=== PATIENT | male | born 1960 | race Caucasian/White ===

== ENCOUNTER 2017-04-16 09:06 | Emergency (ER) | payer OTHER ==
[~2017-04-16] VITALS: Ht 177.8 cm; Wt 92.3 kg
[~2017-04-16 09:06] MED LIST: ASPIR 8181 M1 PO; CO Q-1050 MG PO; COMPLETE M9 MG/15 ML PO; CRESTOR10 MG PO
[2017-04-16 09:43] LABS: HEMATOCRIT 48.9 % (38.0-50.0); MCH 30.8 PG (29.0-34.0); MCV 87.9 FL (86-99); RBC DIS.WIDTH-CV 12.7 % (11.8-14.6); RED BLOOD COUNT 5.56 M/uL (4.00-5.50); WHITE BLOOD COUNT 7.4 K/uL (4.1-10.2)
[2017-04-16 09:54] LABS: CHLORIDE 107 mEq/L (99-109); POTASSIUM 4.3 mEq/L (3.7-5.4); SODIUM 140 mEq/L (136-147)
[2017-04-16 09:56] LABS: GLUCOSE 127 mg/dL (70-99)
[2017-04-16 09:58] LABS: ANION GAP 8 MEQ/L (2-14); TOTAL BILIRUBIN 0.5 mg/dL (0.0-1.0)
[2017-04-16 10:00] LABS: ALKALINE PHOSPHATASE 54 IU/L (3-129); GFR ESTIMATE (CALCULATED) > 59 mL/min/
[2017-04-16 10:01] LABS: UREA NITROGEN (BUN) 12 mg/dL (9-23)
[2017-04-16 10:38] LABS: MEAN PLAT.VOLUME 11.2 uM^3 (9.0-12.4); PLATELET COUNT 193 K/uL (156-360)
[2017-04-16 11:00] LABS: ADD MIUA? NO; BILIRUBIN NEGATIVE; BLOOD NEGATIVE; COLOR YELLOW ((YELLOW)); GLUCOSE (STRIP) NEGATIVE; KETONES NEGATIVE; LEUKOCYTES NEGATIVE; NITRITE NEGATIVE; PROTEIN (STRIP) NEGATIVE; UCUL ADDED? NO; UROBILINOGEN 0.2 MG/DL (0.2-1.0)
[2017-04-16] MEDS ORDERED: NAPROSYN500 MG PO (12:48)
[2017-04-16] MEDS ORDERED: BENTYL20 MG PO (12:48)
[2017-04-16 12:55] VITALS: BP 125/79
== END 2017-04-16 12:56 | disposition home or self-care (01) ==
LOC: EME 09:06
DX: R10.9 Unspecified abdominal pain (principal); R19.5 Other fecal abnormalities; F17.210 Nicotine dependence, cigarettes, uncomplicated; Z71.6 Tobacco abuse counseling; E78.5 Hyperlipidemia, unspecified; Z79.82 Long term (current) use of aspirin
CPT/HCPCS: 74020; 80053; 81003; 85027; 99281; 99283

== ENCOUNTER 2017-06-09 04:25 | Inpatient (IN) | payer OTHER ==
[~2017-06-09] VITALS: Ht 177.8 cm; Wt 92.8 kg
[~2017-06-09 04:25] MED LIST changes: +BENTYL20 MG PO; +CO Q-10200 MG PO; -CO Q-1050 MG PO; +NAPROSYN500 MG PO
[2017-06-09 05:02] LABS: CHLORIDE 105 mEq/L (99-109); POTASSIUM 3.8 mEq/L (3.7-5.4); SODIUM 134 mEq/L (136-147)
[2017-06-09 05:05] LABS: GLUCOSE 128 mg/dL (70-99)
[2017-06-09 05:06] LABS: ANION GAP 10 MEQ/L (2-14); TOTAL BILIRUBIN 0.8 mg/dL (0.0-1.0)
[2017-06-09 05:08] LABS: ALKALINE PHOSPHATASE 64 IU/L (3-129); GFR ESTIMATE (CALCULATED) > 59 mL/min/
[2017-06-09 05:09] LABS: UREA NITROGEN (BUN) 14 mg/dL (9-23)
[2017-06-09 05:12] LABS: LIPASE 28 U/L (1.0-51.0)
[2017-06-09 05:18] LABS: TROP-I INTERPRETATION NEGATIVE; TROPONIN-I < 0.01 ng/mL (0.0-0.30)
[2017-06-09 05:18] LABS: EOSINOPHIL (%) 0.2 % (0-5); EOSINOPHIL COUNT 0.1 K/uL (0-0.3); HEMATOCRIT 43.2 % (38.0-50.0); IMMATURE GRANULOCYTE (%) 0.6 % (0.0-0.7); IMMATURE GRANULOCYTE COUNT 0.1 K/uL; INSTRUMENT ABS NEUTROPHIL CT 17.6 K/uL; LYMPHOCYTE COUNT 1.5 K/uL (1.0-2.8); MCH 30.5 PG (29.0-34.0); MCHC 34.7 G/DL (30.0-36.0); MCV 87.8 FL (86-99); MONOCYTE (%) 10.5 % (3-12); MONOCYTE COUNT 2.3 K/uL (0-0.8); NEUTROPHIL (%) 81.7 % (45-76); NEUTROPHIL COUNT 17.6 K/uL (1.8-6.4); PLATELET COUNT 169 K/uL (156-360); RBC DIS.WIDTH-CV 12.7 % (11.8-14.6); RBC DIS.WIDTH-SD 40.9 % (39-53); RED BLOOD COUNT 4.92 M/uL (4.00-5.50); WHITE BLOOD COUNT 21.6 K/uL (4.1-10.2)
[2017-06-09 06:01] LABS: ADD MIUA? YES; BILIRUBIN NEGATIVE; BLOOD SMALL; COLOR YELLOW ((YELLOW)); GLUCOSE (STRIP) NEGATIVE; KETONES NEGATIVE; LEUKOCYTES NEGATIVE; NITRITE NEGATIVE; PROTEIN (STRIP) NEGATIVE; UROBILINOGEN 0.2 MG/DL (0.2-1.0)
[2017-06-09 06:06] LABS: BACTERIA NONE SEEN /HPF; EPITHELIAL CELLS RARE /HPF; MUCUS TRACE /LPF; RED BLOOD CELLS 0-5 /HPF (0-5); UCUL ADDED? NO; WHITE BLOOD CELLS 0-5 /HPF (0-5)
[2017-06-09] MEDS ORDERED: CENTRUM SILVER1 EAC5 PO (07:32)
[2017-06-09 12:04] VITALS: BP 123/72
[2017-06-09 12:05] LABS: TROP-I INTERPRETATION NEGATIVE; TROPONIN-I < 0.01 ng/mL (0.0-0.30)
[2017-06-09 16:06] VITALS: BP 110/67
[2017-06-09 17:03] LABS: TROP-I INTERPRETATION NEGATIVE; TROPONIN-I < 0.01 ng/mL (0.0-0.30)
[2017-06-09 20:26] VITALS: BP 109/61
[2017-06-09 23:55] VITALS: BP 113/70
[2017-06-10 00:47] LABS: TROP-I INTERPRETATION NEGATIVE; TROPONIN-I < 0.01 ng/mL (0.0-0.30)
[2017-06-10 04:17] VITALS: BP 103/62
[2017-06-10 06:00] LABS: HEMATOCRIT 38.8 % (38.0-50.0); MCHC 34.8 G/DL (30.0-36.0); MEAN PLAT.VOLUME 10.9 uM^3 (9.0-12.4); PLATELET COUNT 140 K/uL (156-360); RBC DIS.WIDTH-SD 42.1 % (39-53); RED BLOOD COUNT 4.36 M/uL (4.00-5.50); WHITE BLOOD COUNT 17.7 K/uL (4.1-10.2)
[2017-06-10 06:28] LABS: ALKALINE PHOSPHATASE 59 IU/L (3-129); ANION GAP 9 MEQ/L (2-14); CHLORIDE 109 MEQ/L (99-109); GFR ESTIMATE (CALCULATED) > 59 mL/min/; GLUCOSE 101 mg/dL (70-99); POTASSIUM 3.8 MEQ/L (3.7-5.4); SAMPLE HEMOLYSIS CHECK 0; SAMPLE ICTERIC CHECK 0; SAMPLE LIPEMIA CHECK 0; SODIUM 138 MEQ/L (136-147); TOTAL BILIRUBIN 0.9 MG/DL (0.0-1.0); UREA NITROGEN (BUN) 9 mg/dL (9-23)
[2017-06-10 07:27] VITALS: BP 114/70
[2017-06-10 10:01] LABS: TROP-I INTERPRETATION NEGATIVE; TROPONIN-I < 0.01 ng/mL (0.0-0.30)
[2017-06-10 11:13] LABS: C DIFF TOXIN NEGATIVE (NEGATIVE); PROBE CHECK PASS; SPECIMEN PROCESSING CONTROL PASS
[2017-06-10 11:43] VITALS: BP 116/69
[2017-06-10 16:24] VITALS: BP 127/76
[2017-06-10 19:44] VITALS: BP 122/82
[2017-06-11 00:15] VITALS: BP 115/66
[2017-06-11 03:49] VITALS: BP 119/76
[2017-06-11 06:09] LABS: EOSINOPHIL (%) 2.4 % (0-5); EOSINOPHIL COUNT 0.2 K/uL (0-0.3); HEMATOCRIT 37.4 % (38.0-50.0); IMMATURE GRANULOCYTE (%) 0.5 % (0.0-0.7); IMMATURE GRANULOCYTE COUNT 0.1 K/uL; INSTRUMENT ABS NEUTROPHIL CT 7.2 K/uL; LYMPHOCYTE COUNT 1.1 K/uL (1.0-2.8); MCH 30.6 PG (29.0-34.0); MCHC 34.5 G/DL (30.0-36.0); MCV 88.6 FL (86-99); MEAN PLAT.VOLUME 11.1 uM^3 (9.0-12.4); MONOCYTE (%) 9.1 % (3-12); MONOCYTE COUNT 0.9 K/uL (0-0.8); NEUTROPHIL (%) 75.9 % (45-76); NEUTROPHIL COUNT 7.2 K/uL (1.8-6.4); PLATELET COUNT 156 K/uL (156-360); RBC DIS.WIDTH-CV 12.8 % (11.8-14.6); RBC DIS.WIDTH-SD 41.3 % (39-53); RED BLOOD COUNT 4.22 M/uL (4.00-5.50); WHITE BLOOD COUNT 9.4 K/uL (4.1-10.2)
[2017-06-11 07:06] LABS: ALKALINE PHOSPHATASE 60 IU/L (3-129); ANION GAP 9 MEQ/L (2-14); CHLORIDE 112 MEQ/L (99-109); GFR ESTIMATE (CALCULATED) > 59 mL/min/; GLUCOSE 78 mg/dL (70-99); POTASSIUM 3.8 MEQ/L (3.7-5.4); SAMPLE HEMOLYSIS CHECK 0; SAMPLE ICTERIC CHECK 0; SAMPLE LIPEMIA CHECK 0; SODIUM 141 MEQ/L (136-147); UREA NITROGEN (BUN) 9 mg/dL (9-23)
[2017-06-11 07:11] LABS: TOTAL BILIRUBIN 0.7 MG/DL (0.0-1.0)
[2017-06-11 08:22] VITALS: BP 115/66
[2017-06-11 12:00] VITALS: BP 120/76
[2017-06-11 16:02] VITALS: BP 126/79
[2017-06-11 19:43] VITALS: BP 126/83
[2017-06-12 00:25] VITALS: BP 123/78
[2017-06-12 03:53] VITALS: BP 112/63
[2017-06-12 07:04] LABS: EOSINOPHIL (%) 3.9 % (0-5); EOSINOPHIL COUNT 0.3 K/uL (0-0.3); IMMATURE GRANULOCYTE (%) 0.5 % (0.0-0.7); INSTRUMENT ABS NEUTROPHIL CT 4.4 K/uL; LYMPHOCYTE COUNT 1.3 K/uL (1.0-2.8); MCH 31.3 PG (29.0-34.0); MCHC 35.1 G/DL (30.0-36.0); MCV 89.2 FL (86-99); MEAN PLAT.VOLUME 10.8 uM^3 (9.0-12.4); MONOCYTE (%) 9.9 % (3-12); MONOCYTE COUNT 0.7 K/uL (0-0.8); NEUTROPHIL (%) 66.1 % (45-76); NEUTROPHIL COUNT 4.4 K/uL (1.8-6.4); PLATELET COUNT 194 K/uL (156-360); RBC DIS.WIDTH-SD 42.8 % (39-53); RED BLOOD COUNT 4.15 M/uL (4.00-5.50); WHITE BLOOD COUNT 6.6 K/uL (4.1-10.2)
[2017-06-12 07:38] LABS: ALKALINE PHOSPHATASE 46 IU/L (3-129); ANION GAP 8 MEQ/L (2-14); CHLORIDE 112 MEQ/L (99-109); GFR ESTIMATE (CALCULATED) > 59 mL/min/; GLUCOSE 80 mg/dL (70-99); SAMPLE HEMOLYSIS CHECK 0; SAMPLE ICTERIC CHECK 0; SAMPLE LIPEMIA CHECK 0; SODIUM 144 MEQ/L (136-147); TOTAL BILIRUBIN 0.6 MG/DL (0.0-1.0); UREA NITROGEN (BUN) 7 mg/dL (9-23)
[2017-06-12 07:39] LABS: POTASSIUM 5.1 MEQ/L (3.7-5.4)
[2017-06-12 07:48] VITALS: BP 123/73
[2017-06-12 11:30] VITALS: BP 150/88
[2017-06-12 15:28] VITALS: BP 146/87
[2017-06-12 19:59] VITALS: BP 136/87
[2017-06-13 00:10] VITALS: BP 118/67
[2017-06-13 03:50] VITALS: BP 108/62
[2017-06-13] MEDS ORDERED: FLAGYL500 MG PO (07:22)
[2017-06-13] MEDS ORDERED: CIPRO500 MG PO (07:22)
[2017-06-13 08:14] VITALS: BP 132/94
== END 2017-06-13 09:09 | disposition home or self-care (01) | DRG 392 ==
LOC: EME 04:25 → EDOF 10:15 → 3EAST 10:15 → ENRESERV 10:23 → 3EAST 11:46
PROVIDERS: Emergency Medicine; Nurse Practitioner Adult Health; Pediatrics
DX: K57.40 Diverticulitis of both small and large intestine with perforation and abscess without bleeding (principal); N28.1 Cyst of kidney, acquired; E78.5 Hyperlipidemia, unspecified; F17.200 Nicotine dependence, unspecified, uncomplicated; R51 Headache; R19.7 Diarrhea, unspecified; D72.829 Elevated white blood cell count, unspecified; R30.0 Dysuria; Z79.82 Long term (current) use of aspirin
CPT/HCPCS: 74176; 80053; 81003; 83605; 83690; 84484; 85025; 85027; 87040; 87493; 93005; 99281; 99284; J0744; J1650; J1885; J2270; J2543; J7030; J7050; S0030

== ENCOUNTER 2017-08-23 01:52 | Emergency (ER) | payer OTHER ==
[~2017-08-23] VITALS: Ht 177.8 cm; Wt 90.9 kg
[~2017-08-23 01:52] MED LIST changes: +CENTRUM SILVER1 EAC5 PO; +CIPRO500 MG PO; +FLAGYL500 MG PO
[2017-08-23 02:23] LABS: HEMATOCRIT 43.6 % (38.0-50.0); MCH 31.1 PG (29.0-34.0); MCHC 34.6 G/DL (30.0-36.0); MCV 89.7 FL (86-99); MEAN PLAT.VOLUME 10.4 uM^3 (9.0-12.4); PLATELET COUNT 189 K/uL (156-360); RBC DIS.WIDTH-CV 13.2 % (11.8-14.6); RBC DIS.WIDTH-SD 43.5 % (39-53); RED BLOOD COUNT 4.86 M/uL (4.00-5.50); WHITE BLOOD COUNT 13.8 K/uL (4.1-10.2)
[2017-08-23 02:43] LABS: CHLORIDE 107 mEq/L (99-109); POTASSIUM 4.6 mEq/L (3.7-5.4); SODIUM 141 mEq/L (136-147)
[2017-08-23 02:45] LABS: GLUCOSE 109 mg/dL (70-99)
[2017-08-23 02:46] LABS: ANION GAP 10 MEQ/L (2-14)
[2017-08-23 02:47] LABS: TOTAL BILIRUBIN 0.4 mg/dL (0.0-1.0)
[2017-08-23 02:49] LABS: ALKALINE PHOSPHATASE 67 IU/L (3-129); GFR ESTIMATE (CALCULATED) > 59 mL/min/
[2017-08-23 02:50] LABS: UREA NITROGEN (BUN) 19 mg/dL (9-23)
[2017-08-23 06:37] LABS: ADD MIUA? NO; BILIRUBIN NEGATIVE; BLOOD NEGATIVE; COLOR STRAW ((YELLOW)); GLUCOSE (STRIP) NEGATIVE; KETONES NEGATIVE; LEUKOCYTES NEGATIVE; NITRITE NEGATIVE; PROTEIN (STRIP) NEGATIVE; UCUL ADDED? NO; UROBILINOGEN 0.2 MG/DL (0.2-1.0)
[2017-08-23] MEDS ORDERED: CIPRO500 MG PO (07:04)
[2017-08-23] MEDS ORDERED: FLAGYL500 MG PO (07:04)
[2017-08-23 07:24] VITALS: BP 108/74
[2017-09-05] MEDS ORDERED: OXYCODONE HCL5 MG PO (08:07)
== END 2017-08-23 07:27 | disposition home or self-care (01) ==
LOC: EME 01:52
DX: K57.32 Diverticulitis of large intestine without perforation or abscess without bleeding (principal); E78.5 Hyperlipidemia, unspecified; K21.9 Gastro-esophageal reflux disease without esophagitis; F41.9 Anxiety disorder, unspecified; Z79.82 Long term (current) use of aspirin; F17.200 Nicotine dependence, unspecified, uncomplicated
CPT/HCPCS: 74177; 80053; 81003; 85027; 99281; 99284; J7030